=== PATIENT | female | born 1975 | race Hispanic/Latino ===

== ENCOUNTER 2025-02-04 19:44 | Emergency (ER) | payer MEDICARE, MEDICAID ==
[2025-02-04] MEDS ORDERED: Lidocaine 4% Cream 5 GM TUBE w/ Tegaderm ONE (20:33)
== END 2025-02-04 21:12 | disposition home or self-care (01) ==
LOC: MADERS 19:44
DX: T21.27XA Burn of second degree of female genital region, initial encounter (principal); I11.0 Hypertensive heart disease with heart failure; I50.9 Heart failure, unspecified; E11.9 Type 2 diabetes mellitus without complications; E78.5 Hyperlipidemia, unspecified; Z87.891 Personal history of nicotine dependence; Z79.84 Long term (current) use of oral hypoglycemic drugs; Z79.82 Long term (current) use of aspirin; Z79.4 Long term (current) use of insulin; Y65.8 Other specified misadventures during surgical and medical care; Y82.8 Other medical devices associated with adverse incidents
CPT/HCPCS: 99283